=== PATIENT | male | born 1965 | race American Indian/Alaskan Native ===

== ENCOUNTER 2024-01-05 21:23 | Emergency (ER) | payer BC ==
--- NOTE | 2024-01-05 21:48 | ED ---
General Adult HPI - General Source: patient, RN notes reviewed Mode of arrival: ambulatory Limitations: no limitations <Comfort Bullard - Last Filed: 01/05/24 21:38> <Eduardo Hatfield - Last Filed: 01/07/24 01:01> - General Chief complaint: Abdominal Pain Stated complaint: Back/Abd Pain Time Seen by Provider: 01/05/24 21:45 - History of Present Illness Initial comments: 8-year-old male presents to the emergency department for evaluation of low back pain and left lower abdominal pain. He states that this has been going on for quite a while now but is continuously getting worse. He notes nausea without vomiting. He states that he had hernia surgery last year and has not felt right since then. He states that he alternates between diarrhea and constipation. He had a bowel movement yesterday. (Comfort Bullard) 58-year-old male presenting with chief complaint of abdominal pain. Patient has had lower abdominal pain and lower back pain for the past several months. States that this started after a hernia surgery. The pain is mainly at the left lower quadrant. The lower back pain affects both sides. No pain radiating down the legs. No loss of bowel or bladder control or saddle paresthesia. He admits to nausea with no vomiting. Patient states that he alternates between being constipated and having diarrhea. No hematochezia or melena. No fevers or chills. No chest pain or difficulty breathing. (Eduardo Hatfield) - Related Data Allergies Allergy/AdvReac Type Severity Reaction Status Date / Time No Known Allergies Allergy Verified 01/05/24 21:38 Review of Systems ROS Other: All systems not noted in ROS Statement are negative. <Comfort Bullard - Last Filed: 01/05/24 21:38> ROS Other: All systems not noted in ROS Statement are negative. <Eduardo Hatfield - Last Filed: 01/07/24 01:01> ROS Statement: Those systems with pertinent positive or pertinent negative responses have been documented in the HPI. Past Medical History Past Medical History: No Reported History History of Any Multi-Drug Resistant Organisms: None Reported Past Surgical History: Hernia Repair Past Psychological History: No Psychological Hx Reported Smoking Status: Former smoker Past Alcohol Use History: Occasional Past Drug Use History: None Reported <Comfort Bullard - Last Filed: 01/05/24 21:38> General Exam Limitations: no limitations <Comfort Bullard - Last Filed: 01/05/24 21:38> Limitations: no limitations General appearance: alert, in no apparent distress Head exam: Present: atraumatic, normocephalic Eye exam: Present: normal appearance Neck exam: Present: normal inspection ( ). Absent: meningismus Respiratory exam: Present: normal lung sounds bilaterally. Absent: respiratory distress, wheezes, rales, rhonchi, stridor Cardiovascular Exam: Present: regular rate, normal rhythm, normal heart sounds. Absent: systolic murmur, diastolic murmur, rubs, gallop, clicks GI/Abdominal exam: Present: soft, tenderness (Some left-sided discomfort). Absent: distended, guarding, rebound, rigid Extremities exam: Present: normal inspection Back exam: Present: normal inspection, paraspinal tenderness. Absent: vertebral tenderness Neurological exam: Present: alert, oriented X3 Psychiatric exam: Present: normal affect, normal mood Skin exam: Present: warm, dry <Eduardo Hatfield - Last Filed: 01/07/24 01:01> - General Exam Comments Initial Comments: Visual Physical Exam Vital signs reviewed General: Well-appearing, nontoxic, no acute distress. Head: Normocephalic, atraumatic Eyes: PERRLA, EOMI ENT: Airway patent Chest: Nonlabored breathing Skin: No visual rash, normal skin tone Neuro: Alert and oriented 3 Musculoskeletal: No gross abnormalities (Comfort Bullard) Course Vital Signs 01/05/24 01/06/24 21:35 03:17 Temperature 98.7 F Pulse Rate 80 60 Respiratory 18 18 Rate Blood Pressure 132/75 139/89 O2 Sat by Pulse 98 98 Oximetry Medical Decision Making <Comfort Bullard - Last Filed: 01/05/24 21:38> - Lab Data Result diagrams: 01/05/24 21:50 01/05/24 21:50 <Eduardo Hatfield - Last Filed: 01/07/24 01:01> - Medical Decision Making Quick note preformed by Comfort Bullard PA-C (Comfort Bullard) Was pt. sent in by a medical professional or institution ([facility] Suarez, [employer], urgent care, hospital, or group home...) When possible be specific @ -No Did you speak to anyone other than the patient for history (EMS, parent, family, police, friend...)? What history was obtained from this source @ -No Did you review nursing and triage notes (agree or disagree)? Why? @ -I reviewed and agree with nursing and triage notes Were old charts reviewed (outside hosp., previous admission, EMS record, old EKG, old radiological studies, urgent care reports/EKG's, group home records)? Report findings @ -No old charts were reviewed Differential Diagnosis (chest pain, altered mental status, abdominal pain women, abdominal pain men, vaginal bleeding, weakness, fever, dyspnea, syncope, headache, dizziness, GI bleed, back pain, seizure, CVA, palpatations, mental health, musculoskeletal)? @ -MDM Differential Abdominal Pain Men: Appendicitis, cholecystitis, diverticulosis, ischemic bowel, pancreatitis, hepatitis, UTI, gastroenteritis, AAA, incarcerated hernia, bowel obstruction, constipation, inflammatory bowel, hepatitis, peptic ulcer disease, splenic infarction, perforated viscus, testicular torsion... This is not meant to be an all-inclusive list EKG interpreted by me (3pts min.). @ -As above X-rays interpreted by me (1pt min.). @ -None done CT interpreted by me (1pt min.). @ -CT shows normal appendix. Bowel loops are nondilated. No acute inflammatory process is seen involving the bowel. Up to 7 cm of stool in the cecum and right colon. Possible mild constipation. U/S interpreted by me (1pt. min.). @ -None done What testing was considered but not performed or refused? (CT, X-rays, U/S, labs)? Why? @ -None What meds were considered but not given or refused? Why? @ -None Did you discuss the management of the patient with other professionals (professionals i.e. , PA, [employer], lab, RT, psych nurse, clinical social work aide, glue spreader, teacher, audit officer, telehealth case manager)? Give summary @ -No Was smoking cessation discussed for >3mins.? @ -No Was critical care preformed (if so, how long)? @ -No Were there social determinants of health that impacted care today? How? (Homel essness, low income, unemployed, alcoholism, drug addiction, transportation, low edu. Level, literacy, decrease access to med. care, residential, rehab)? @ -No Was there de-escalation of care discussed even if they declined (Discuss DNR or withdrawal of care, Hospice)? DNR status @ -No What co-morbidities impacted this encounter? (DM, HTN, Smoking, COPD, CAD, Cancer, CVA, ARF, Chemo, Hep., AIDS, mental health diagnosis, sleep apnea, morbid obesity)? @ -None Was patient admitted / discharged? Hospital course, mention meds given and route, prescriptions, significant lab abnormalities, going to OR and other pertinent info. @ -58-year-old male presenting with chief complaint of abdominal pain and lower back pain. Workup is initiated by triage. Lab work shows no leukocytosis or anemia. Amylase and lipase are WNL. CMP shows mild transaminitis. Urine shows no infectious process or bleeding. Patient is later placed in a room and history and physical examination are conducted. Patient does have some left- sided abdominal discomfort. He does have paraspinal muscle tenderness with no red flag features. CT is obtained which shows possible mild constipation, otherwise no acute process. Patient is educated on today's findings and management at home. Follow-up with PCP. Report back to ER with any new or worsening symptoms. Discussed return parameters and answered all questions. Patient conveyed verbal understanding and agreed to the plan. I discussed this case in detail with my attending Dr. Beck Undiagnosed new problem with uncertain prognosis? @ -No Drug Therapy requiring intensive monitoring for toxicity (Heparin, Nitro, Insulin, Cardizem)? @ -No Were any procedures done? @ -No Diagnosis/symptom? @ -Abdominal pain, constipation Acute, or Chronic, or Acute on Chronic? @ -Acute Uncomplicated (without systemic symptoms) or Complicated (systemic symptoms)? @ -Uncomplicated Side effects of treatment? @ -No Exacerbation, Progression, or Severe Exacerbation? @ -No Poses a threat to life or bodily function? How? (Chest pain, [place], [place], pneumonia, PE, COPD, DKA, ARF, appy, cholecystitis, CVA, Diverticulitis, Homicidal, Suicidal, threat to staff... and all critical care pts) @ -Low likelihood (Eduardo Hatfield) - Lab Data Lab Results 01/05/24 01/05/24 01/05/24 Range/Units 21:50 21:50 21:50 WBC 9.8 (3.8-10.6) k/uL RBC 4.98 (4.30-5.90) m/uL Hgb 15.1 (13.0-17.5) gm/dL Hct 45.2 (39.0-53.0) % MCV 90.9 (80.0-100.0) fL MCH 30.3 (25.0-35.0) pg MCHC 33.4 (31.0-37.0) g/dL RDW 12.1 (11.5-15.5) % Plt Count 157 (150-450) k/uL MPV 8.6 Neutrophils % 63 % Lymphocytes % 27 % Monocytes % 6 % Eosinophils % 2 % Basophils % 1 % Neutrophils # 6.2 (1.3-7.7) k/uL Lymphocytes # 2.7 (1.0-4.8) k/uL Monocytes # 0.6 (0-1.0) k/uL Eosinophils # 0.2 (0-0.7) k/uL Basophils # 0.1 (0-0.2) k/uL Sodium 135 L (137-145) mmol/L Potassium 3.6 (3.5-5.1) mmol/L Chloride 101 (98-107) mmol/L Carbon Dioxide 25 (22-30) mmol/L Anion Gap 9 mmol/L BUN 20 (9-20) mg/dL Creatinine 0.79 (0.66-1.25) mg/dL Est GFR (CKD-EPI)AfAm >90 (>60 ml/min/1.73 sqM) Est GFR (CKD-EPI)NonAf >90 (>60 ml/min/1.73 sqM) Glucose 121 H (74-99) mg/dL Plasma Lactic Acid Constantino (0.7-2.0) mmol/L Calcium 9.1 (8.4-10.2) mg/dL Total Bilirubin 0.7 (0.2-1.3) mg/dL AST 60 H (17-59) U/L ALT 100 H (4-49) U/L Alkaline Phosphatase 64 (38-126) U/L Total Protein 6.9 (6.3-8.2) g/dL Albumin 4.1 (3.5-5.0) g/dL Amylase 66 (30-110) U/L Lipase 44 (23-300) U/L Urine Color Light Yellow Urine Appearance Clear (Clear) Urine pH 6.5 (5.0-8.0) Ur Specific [place] 1.023 (1.001-1.035) Urine Protein Negative (Negative) Urine Glucose (UA) Negative (Negative) Urine Ketones Negative (Negative) Urine Blood Negative (Negative) Urine Nitrite Negative (Negative) Urine Bilirubin Negative (Negative) Urine Urobilinogen <2.0 (<2.0) mg/dL Ur Leukocyte Esterase Negative (Negative) 01/05/24 Range/Units 21:50 WBC (3.8-10.6) k/uL RBC (4.30-5.90) m/uL Hgb (13.0-17.5) gm/dL Hct (39.0-53.0) % MCV (80.0-100.0) fL MCH (25.0-35.0) pg MCHC (31.0-37.0) g/dL RDW (11.5-15.5) % Plt Count (150-450) k/uL MPV Neutrophils % % Lymphocytes % % Monocytes % % Eosinophils % % Basophils % % Neutrophils # (1.3-7.7) k/uL Lymphocytes # (1.0-4.8) k/uL Monocytes # (0-1.0) k/uL Eosinophils # (0-0.7) k/uL Basophils # (0-0.2) k/uL Sodium (137-145) mmol/L Potassium (3.5-5.1) mmol/L Chloride (98-107) mmol/L Carbon Dioxide (22-30) mmol/L Anion Gap mmol/L BUN (9-20) mg/dL Creatinine (0.66-1.25) mg/dL Est GFR (CKD-EPI)AfAm (>60 ml/min/1.73 sqM) Est GFR (CKD-EPI)NonAf (>60 ml/min/1.73 sqM) Glucose (74-99) mg/dL Plasma Lactic Acid Constantino 1.9 (0.7-2.0) mmol/L Calcium (8.4-10.2) mg/dL Total Bilirubin (0.2-1.3) mg/dL AST (17-59) U/L ALT (4-49) U/L Alkaline Phosphatase (38-126) U/L Total Protein (6.3-8.2) g/dL Albumin (3.5-5.0) g/dL Amylase (30-110) U/L Lipase (23-300) U/L Urine Color Urine Appearance (Clear) Urine pH (5.0-8.0) Ur Specific [place] (1.001-1.035) Urine Protein (Negative) Urine Glucose (UA) (Negative) Urine Ketones (Negative) Urine Blood (Negative) Urine Nitrite (Negative) Urine Bilirubin (Negative) Urine Urobilinogen (<2.0) mg/dL Ur Leukocyte Esterase (Negative) Disposition <Comfort Bullard - Last Filed: 01/05/24 21:38> Is patient prescribed a controlled substance at d/c from ED?: No Time of Disposition: 03:07 <Eduardo Hatfield - Last Filed: 01/07/24 01:01> Clinical Impression: Abdominal pain, Constipation Disposition: HOME SELF-CARE Condition: Good Instructions (If sedation given, give patient instructions): Constipation (ED), Abdominal Pain (ED) Additional Instructions: Follow-up with PCP. Report back to ER with any new or worsening symptoms. Take MiraLAX per package instructions. Referrals: Dirk Torres MD [Primary Care Provider] - 1-2 days
[2024-01-05 21:50] VITALS: RESP 18; TEMP 98.7
[2024-01-05 22:48] LABS: Basophils # (A) 0.1 k/uL (0-0.2); Basophils % (A) 1 %; Eosinophils # (A) 0.2 k/uL (0-0.7); Eosinophils % (A) 2 %; HCT 45.2 % (39.0-53.0); HGB 15.1 gm/dL (13.0-17.5); Lymphocytes # (A) 2.7 k/uL (1.0-4.8); Lymphocytes % (A) 27 %; MCH 30.3 pg (25.0-35.0); MCHC 33.4 g/dL (31.0-37.0); MCV 90.9 fL (80.0-100.0); Mean Platelet Volume 8.6; Monocytes # (A) 0.6 k/uL (0-1.0); Monocytes % (A) 6 %; Neutrophils # (A) 6.2 k/uL (1.3-7.7); Neutrophils % (A) 63 %; Platelet Count 157 k/uL (150-450); RBC 4.98 m/uL (4.30-5.90); RDW 12.1 % (11.5-15.5); WBC 9.8 k/uL (3.8-10.6)
[2024-01-05 23:01] LABS: ALT 100 U/L (4-49); AST 60 U/L (17-59); African American GFR (CKD) >90 (>60 ml/min/1.73 sqM); Albumin 4.1 g/dL (3.5-5.0); Alkaline Phosphatase 64 U/L (38-126); Amylase 66 U/L (30-110); Anion Gap 9 mmol/L; Blood Urea Nitrogen 20 mg/dL (9-20); Calcium 9.1 mg/dL (8.4-10.2); Carbon Dioxide 25 mmol/L (22-30); Chloride 101 mmol/L (98-107); Glucose 121 mg/dL (74-99); Lipase 44 U/L (23-300); Non-African American GFR(CKD) >90 (>60 ml/min/1.73 sqM); Potassium 3.6 mmol/L (3.5-5.1); Sodium 135 mmol/L (137-145); Total Bilirubin 0.7 mg/dL (0.2-1.3); Total Protein 6.9 g/dL (6.3-8.2)
[2024-01-05 23:03] LABS: Appearance,Urine Clear (Clear); Bilirubin,Urine Negative (Negative); Blood,Urine Negative (Negative); Color,Urine Light Yellow; Glucose,Urine (UA) Negative (Negative); Ketones,Urine Negative (Negative); Leukocyte Esterase,Urine Negative (Negative); Nitrite,Urine Negative (Negative); PH, Urine 6.5 (5.0-8.0); Protein,Urine Negative (Negative); Specific Gravity,Urine 1.023 (1.001-1.035); Urobilinogen,Urine <2.0 mg/dL (<2.0)
[2024-01-06] MEDS: SODIUM CHLORIDE 0.9% 1,000 ML IV ONE (01:05)
[2024-01-06] MEDS: KETOROLAC 15 MG/ML 1 ML VIAL IVP STA (01:05)
--- NOTE | 2024-01-06 02:46 | CT ---
EXAM: CT Abdomen and Pelvis With Intravenous Contrast CLINICAL HISTORY: CT Reason: LLQ pain TECHNIQUE: Axial computed tomography images of the abdomen and pelvis with intravenous contrast. CTDI is 32 mGy and DLP is 1622.7 mGy-cm. This CT exam was performed using one or more of the following dose reduction techniques: automated exposure control, adjustment of the mA and/or kV according to patient size, and/or use of iterative reconstruction technique. COMPARISON: No relevant prior studies available. FINDINGS: Lung bases: Unremarkable. No mass. No consolidation. ABDOMEN: Liver: There is fatty infiltration of the liver and hepatomegaly measuring 19 cm craniocaudad. There are 2 simple liver cysts measuring up to 3.3 cm. No follow-up is required. Gallbladder and bile ducts: Unremarkable. No calcified stones. No ductal dilation. Pancreas: Unremarkable. No mass. No ductal dilation. Spleen: Unremarkable. No splenomegaly. Adrenals: Unremarkable. No mass. Kidneys and ureters: Delayed images show normal renal contrast excretion bilaterally. Simple cyst in the lower pole the left kidney measuring 2.6 cm. No follow-up is required. No hydronephrosis. Stomach and bowel: Up to 7 cm of stool in the cecum and right colon. Possible mild constipation. No obstruction. No mucosal thickening. PELVIS: Appendix: The appendix is normal. Bowel loops are nondilated. No acute inflammatory process is seen involving the bowel. Bladder: Unremarkable. No mass. Reproductive: Unremarkable as visualized. ABDOMEN and PELVIS: Intraperitoneal space: Unremarkable. No free air. No significant fluid collection. Bones/joints: Mild degenerative changes in the spine. No fracture or subluxation is seen. Soft tissues: Unremarkable. Vasculature: Unremarkable. No abdominal aortic aneurysm. Lymph nodes: Unremarkable. No enlarged lymph nodes. IMPRESSION: 1. The appendix is normal. Bowel loops are nondilated. No acute inflammatory process is seen involving the bowel. 2. Up to 7 cm of stool in the cecum and right colon. Possible mild constipation.
[2024-01-06 03:25] VITALS: BP 139/89; PULSE 60
== END 2024-01-06 03:22 | disposition home or self-care (01) ==
LOC: EC 21:23
DX: K59.00 Constipation, unspecified (principal); M54.50 Low back pain, unspecified; R74.01 Elevation of levels of liver transaminase levels; Z87.891 Personal history of nicotine dependence
CPT/HCPCS: 36415; 80053; 82150; 83605; 83690; 85025; 81003; 74177; 99284; 96374; 96361; J1885

== ENCOUNTER → 2025-03-05 | Outpatient (CLI) | payer BC ==
--- NOTE | 2025-03-05 11:36 | XR ---
Chest, 2 view. CLINICAL INDICATION: Male, 59 years old with history of Leg Swelling COMPARISON: None TECHNIQUE: PA and lateral views the chest are obtained. FINDINGS: The lungs are clear and there is no consolidative or interstitial opacity. There is no pleural effusion or pneumothorax. The heart, pulmonary vasculature, mediastinum and johnnie appear normal. The osseous structures are intact. IMPRESSION: No significant abnormality seen. No acute cardiopulmonary disease. [facility], , 03/05/2025 11:34 AM
[2025-03-06 06:05] LABS: Basophils # (A) 0.06 X 10*3/uL (0.00-0.10); Basophils % (A) 0.8 %; Eosinophils # (A) 0.18 X 10*3/uL (0.04-0.35); Eosinophils % (A) 2.5 %; HGB 15.2 g/dL (13.0-17.0); Lymphocytes # (A) 2.23 X 10*3/uL (0.90-5.00); Lymphocytes % (A) 31.3 %; MCHC 33.8 g/dL (32.0-37.0); MCV 91.6 FL (80.0-97.0); Mean Platelet Volume 11.8 FL (9.5-12.2); Monocytes # (A) 0.71 X 10*3/uL (0.20-1.00); NRBC Per 100 WBC 0 X 10*3/uL (0.00-0.01); Neutrophils # (A) 3.94 X 10*3/uL (1.80-7.70); Neutrophils % (A) 55.3 %; Platelet Count 133 X 10*3/uL (140-440); RBC 4.91 X 10*6/uL (4.40-5.60); RDW 11.8 % (11.5-14.5); WBC 7.13 X 10*3/uL (4.50-10.00)
[2025-03-06 08:09] LABS: ALT 103 U/L (10-49); AST 63 U/L (14-35); Albumin 4.1 g/dL (3.8-4.9); Albumin/Globulin Ratio 1.52 Ratio (1.60-3.17); Alkaline Phosphatase 68 U/L (41-126); BUN/Creat Ratio 18.22 Ratio (12.00-20.00); Blood Urea Nitrogen 16.4 mg/dL (9.0-27.0); Calcium 9.1 mg/dL (8.7-10.3); Carbon Dioxide 25.6 mmol/L (21.6-31.8); Chloride 100 mmol/L (96-109); Globulin 2.7 g/dL (1.6-3.3); Glucose 117 mg/dL (70-110); LDL Cholesterol,Calculated 140.5 mg/dL (0.0-131.0); Magnesium 1.9 mg/dL (1.5-2.4); PSA Annual Screen 0.535 ng/mL (0.000-4.000); Potassium 4.3 mmol/L (3.5-5.5); Sodium 137 mmol/L (135-145); Total Bilirubin 0.5 mg/dL (0.3-1.2); Total Protein 6.8 g/dL (6.2-8.2)
== END | disposition home or self-care (01) ==
LOC: LABWHC1 11:02
PROVIDERS: ATTEND Internal Medicine
DX: Z11.59 Encounter for screening for other viral diseases (principal); Z12.5 Encounter for screening for malignant neoplasm of prostate; I10 Essential (primary) hypertension; E78.5 Hyperlipidemia, unspecified; M79.89 Other specified soft tissue disorders
CPT/HCPCS: 86803; 80061; 80053; 84443; 83735; 85025; 71046; 36415; G0103

== ENCOUNTER → 2025-03-30 | Outpatient (CLI) | payer BC ==
--- NOTE | 2025-03-30 09:58 | US ---
EXAMINATION TYPE: US bladder DATE OF EXAM: 03/30/2025 COMPARISON: NONE CLINICAL INDICATION: Male, 59 years old with history of M79.89 SOFT TISSUE DISORDER R32 URINARY INCON TINEN; Urinary incontinence TECHNIQUE: Grayscale and color doppler imaging of the urinary bladder. FINDINGS: Initial urine distended bladder shows no gross abnormality. Post Void Residual Volume: 45.91 mL Color Doppler performed to assess ureteral jets. Bilateral Jets seen: no IMPRESSION: There is increased post void bladder volume of 46 mL. While this is increased, less than 50 mL post void residual may be considered normal. Further clinical correlation is recommended. [facility], , 03/30/2025 9:56 AM
--- NOTE | 2025-03-30 10:01 | US ---
EXAMINATION TYPE: US abdomen complete DATE OF EXAM: 03/30/2025 COMPARISON: NONE CLINICAL INDICATION: Male, 59 years old with history of M79.89; pain TECHNIQUE: Grayscale and color Doppler imaging of the abdomen was performed. FINDINGS: EXAM MEASUREMENTS: Liver Length: 18 cm Gallbladder Wall: .2 cm CBD: .5 cm, color Doppler imaging was utilized to isolate the common bile duct for measurement. Spleen: 13.2 cm Right Kidney: 11.2 x 5.6 x 5.7 cm Left Kidney: 11.9 x 6.5 x 5.2 cm BUSINESS ADMINISTRATION PROFESSOR NOTES: limited due to body habitus. Pancreas: Obscured by bowel gas Liver: Echogenic and attenuating. Mildly enlarged. A couple anechoic areas seen largest measuring 3. 3 x 4.2 x 4.1 cm Gallbladder: wnl Evidence for sonographic Mattson's sign: No CBD: wnl Spleen: Upper limits Right Kidney: Centrally located hypoechoic area at the upper and midpole measuring 2.6 x 3.0 x 2.2 c m. No hydronephrosis. Left Kidney: Anechoic area mid pole 2.9 x 2.6 x3.3 cm. Internal echoes are felt to be artifactual. Upper IVC: wnl Abd Aorta: Limited due to bowel gas. IMPRESSION: 1. Mild hepatomegaly at 18.0 cm with moderate to severe hepatic steatosis. Appropriate clinical manag ement is advised. 2. No gallstones or biliary ductal dilatation. 3. Indeterminate 3.0 cm upper to mid pole right renal lesion. A cyst is possible with internal echoes representing artifact or debris. Recommend 6 month follow-up ultrasound to reassess an attempt more accurate characterization. 4. A 3.3 cm cyst mid pole left kidney. [facility], , 03/30/2025 9:59 AM
== END | disposition home or self-care (01) ==
LOC: RADUSWWP 07:14
PROVIDERS: ATTEND Internal Medicine
DX: R16.0 Hepatomegaly, not elsewhere classified (principal); K76.0 Fatty (change of) liver, not elsewhere classified; R32 Unspecified urinary incontinence; N28.1 Cyst of kidney, acquired
CPT/HCPCS: 76700; 76857